=== PATIENT | male | born 1970 | race Caucasian/White ===

== ENCOUNTER 2017-04-03 13:21 | Day surgery (SDC) | payer OTHER ==
[~2017-04-03] VITALS: Ht 177.8 cm; Wt 130.0 kg
[2017-04-03 14:16] VITALS: Ht 177.8 cm; Wt 130.0 kg
[2017-04-03] MEDS ORDERED: LOSA100T7 PO (14:27)
[2017-04-03] MEDS ORDERED: OMEP20CA16 PO (14:27)
[2017-04-03] MEDS ORDERED: HTCZ (14:27)
[2017-04-03] MEDS ORDERED: ASPI-664 PO (14:27)
[2017-04-03] MEDS ORDERED: PROPOFOL 60 ML ONE (15:48)
--- NOTE | 2017-04-03 16:50 | GILP ---
DATE OF PROCEDURE: 04/03/2017 NAME OF PROCEDURES: 1. Esophagogastroduodenoscopy and biopsy. 2. Colonoscopy and biopsy. SURGEON: Michelle Meza MD PREOPERATIVE DIAGNOSES: 1. Abdominal pain. 2. Chronic diarrhea. POSTOPERATIVE DIAGNOSES: 1. Hiatal hernia. 2. Gastroesophageal reflux disease. 3. Gastritis with erosions. 4. Gastric mucosal biopsies were taken for Helicobacter pylori test. 5. Colonoscopy all the way to the cecum. 6. Internal hemorrhoids. 7. Random biopsies were taken to rule out microscopic colitis. INDICATION FOR THE PROCEDURE: Mr. Sebastián Rodriguez is a 45-year-old male patient who had upper abd ominal pain, not responding to therapy. He also had chronic diarrhea and urgency to have a bowel mo vement after eating. The patient was scheduled for endoscopy and colonoscopy for further evaluation . The procedures and possible complications were well explained to the patient, he understood and cons ented to the procedure. DESCRIPTION OF PROCEDURE: Under the influence of anesthesia, the gastroscope was carefully introduc ed into the esophagus and under direct vision, it was advanced to the stomach and through the pyloru s into the duodenal bulb and descending duodenum. FINDINGS: ESOPHAGUS: The patient had hiatal hernia and gastroesophageal reflux disease. STOMACH: He had gastritis with erosions. Gastric mucosal biopsies were taken for H. pylori test. DUODENUM: Normal. The colonoscope was carefully introduced in the rectum and under direct vision, it was advanced all the way to the cecum. FINDINGS: The patient had internal hemorrhoids. Random biopsies were taken to rule out microscopic colitis. He tolerated the procedures very well and there was no complication from the procedures. At the end of the procedures, he was awake with stable vital signs and he was discharged home to the care of h is family. IMPRESSION: 1. Hiatal hernia. 2. Gastroesophageal reflux disease. 3. Gastritis with erosions. 4. Gastric mucosal biopsies were taken for Helicobacter pylori test. 5. Colonoscopy all the way to the cecum. 6. Internal hemorrhoids. 7. Random biopsies were taken to rule out microscopic colitis. PLAN 1. Continue omeprazole. 2. Add Zantac 300 mg p.o. at bedtime. 3. Bentyl 10 mg p.o. t.i.d. a.c. p.r.n. for diarrhea or urgency to have a bowel movement. 4. Await histopathology reports. 5. Next screening colonoscopy in 10 years. Dictated By: MICHELLE ARRIAGA/MANUEL Conf#: [id number] DID#: [id number]
== END 2017-04-03 17:15 | disposition home or self-care (01) ==
LOC: GIL 13:21
PROVIDERS: ATTEND Internal Medicine Gastroenterology
DX: K44.9 Diaphragmatic hernia without obstruction or gangrene (principal); K21.9 Gastro-esophageal reflux disease without esophagitis; K29.60 Other gastritis without bleeding; K64.8 Other hemorrhoids; I10 Essential (primary) hypertension; E66.01 Morbid (severe) obesity due to excess calories; Z68.41 Body mass index [BMI] 40.0-44.9, adult
CPT/HCPCS: 87081; 88305